=== PATIENT | female | born 1975 | race Caucasian/White ===

== ENCOUNTER 2022-10-17 08:12 | Outpatient (CLI) | payer OTHER, SELFPAY ==
[2022-10-17 12:56] LABS: Albumin* 4.4 g/dL (3.3-5.0); Chloride* 106 mmol/L (96-114); Sodium* 139 mmol/L (135-149)
[2022-10-17 12:57] LABS: Potassium* 4.7 mmol/L (3.6-5.1)
[2022-10-17 12:58] LABS: Cholesterol* 227 mg/dL (90-199)
[2022-10-17 12:59] LABS: Alanine Aminotransferase* 21 U/L (4-35); Alkaline Phosphatase* 94 U/L (40-150); Aspartate Amino Transferase* 29 U/L (12-35); Bilirubin Total* 0.6 mg/dL (0.1-1.5); Blood Urea Nitrogen* 15 mg/dL (5-24); Carbon Dioxide* 27 mmol/L (20-32); Creatinine* 0.7 mg/dL (0.5-1.5); Estimated Glomerular Filt Rate 106 ml/min; Glucose* 89 mg/dL (60-115); Triglycerides* 89 mg/dL (40-149)
[2022-10-17 13:00] LABS: Calcium* 9.4 mg/dL (8.4-10.6); HDL Cholesterol* 61 mg/dL (>=50); LDL Cholesterol Calculated 148 mg/dL (<100)
== END 2022-10-17 08:13 | disposition home or self-care (01) ==
PROVIDERS: PCP Physician Assistant Medical; Visit Provider Physician Assistant Medical
DX: Z01.419 Encounter for gynecological examination (general) (routine) without abnormal findings (principal); E78.5 Hyperlipidemia, unspecified; E66.9 Obesity, unspecified; N95.9 Unspecified menopausal and perimenopausal disorder
CPT/HCPCS: 80053; 80061; 84443

== ENCOUNTER 2022-12-19 09:03 | Outpatient (CLI) | payer OTHER, SELFPAY ==
--- NOTE | 2022-12-19 09:15 | CRLHL7_ITS ---
For Patients: As a result of the Century Cures Act, medical imaging exams and procedure reports are released immediately into your electronic medical record. You may view this report before your referring provider. If you have questions, please contact your health care provider. BILATERAL SCREENING MAMMOGRAM WITH COMPUTER-AIDED DETECTION AND TOMOSYNTHESIS TECHNIQUE: CC and MLO views were obtained. These mammographic images have been obtained using full-field digital technique. These mammographic images were interpreted with the benefit of computer-aided detection. Breast Tomosynthesis was used in this interpretation. COMPARISON FILM: 01/14/19, 11/06/17, 09/05/16. FINDINGS: There are scattered areas of fibroglandular density IMPRESSION: There is no radiographic evidence for malignancy. ASSESSMENT: BI-RADS Category 1: Negative RECOMMENDATION: Routine screening mammogram in 1 year. A lay language report of this examination will be provided to the patient. Sidney Valentine M.D. Diagnostic Radiologist [email or web address] LAINEY/Dictated by: Sidney Valentine MD @ 12/19/2022 12:38:00 PM (Electronically Signed)
== END 2022-12-19 09:04 | disposition home or self-care (01) ==
LOC: MAMMO 09:04
PROVIDERS: PCP Physician Assistant Medical; Visit Provider Physician Assistant Medical
DX: Z12.31 Encounter for screening mammogram for malignant neoplasm of breast (principal)
CPT/HCPCS: 77063; 77067

== ENCOUNTER 2024-01-15 13:39 | Outpatient (CLI) | payer OTHER, SELFPAY ==
--- NOTE | 2024-01-15 14:00 | MM_ITS ---
Patient: RED LOMAX Facility:?[facility] Patient ID:?[id number] Site Patient ID:?[id number] Site :?[id number] Study:?XRay-Breast Bilateral 3D w/CAD-01/15/2024 2:03:32 PM Ordering Physician:Apol[place] Final Report: BILATERAL SCREENING MAMMOGRAM WITH COMPUTER-AIDED DETECTION AND TOMOSYNTHESIS TECHNIQUE: CC and MLO views were obtained. These mammographic images have been obtained using full-field digital technique. These mammographic images were interpreted with the benefit of computer-aided detection. Breast Tomosynthesis was used in this interpretation. COMPARISON FILM: 12/19/2022, 01/14/2019, 11/06/2017. FINDINGS: There are scattered areas of fibroglandular density. IMPRESSION: There is no radiographic evidence for malignancy. ASSESSMENT: BI-RADS Category 1: Negative RECOMMENDATION: Routine screening mammogram in 1 year. A lay language report of this examination will be provided to the patient. Sidney Valentine M.D. Diagnostic Radiologist [email or web address] DSM/sp R& Transcribed: 3:02 p.m. SP/Dictated by: Sidney Valentine MD @ 01/18/2024 9:18:00 AM Signed by:?Sidney Valentine MD @01/18/2024 3:18:21 PM (Electronic Signature)
== END 2024-01-15 13:40 | disposition home or self-care (01) ==
LOC: MAMMO 13:40
PROVIDERS: PCP Physician Assistant Medical; Visit Provider Physician Assistant Medical
DX: Z12.31 Encounter for screening mammogram for malignant neoplasm of breast (principal)
CPT/HCPCS: 77063; 77067

== ENCOUNTER 2024-02-16 09:10 | Outpatient (CLI) | payer OTHER, SELFPAY | END 2024-02-16 09:11 | disposition home or self-care (01) | PROVIDERS: PCP Physician Assistant Medical; Visit Provider Physician Assistant Medical | DX: Z00.00 Encounter for general adult medical examination without abnormal findings (principal); E78.5 Hyperlipidemia, unspecified; E66.9 Obesity, unspecified | CPT/HCPCS: 80053; 80061; 84443 ==

== ENCOUNTER 2025-10-03 13:05 | Outpatient (CLI) | payer OTHER, SELFPAY ==
--- NOTE | 2025-10-03 13:00 | MM_ITS ---
Patient: RED LOMAX Facility:?[facility] Patient ID:?[id number] Site Patient ID:?[id number] Study:?XRay-Breast 3D Jose Guadalupe SCREENING-10/03/2025 1:42:59 PM Ordering Physician:Apolonia Quiros Final Report: INDICATION: BILATERAL SCREENING MAMMOGRAM, ASYMPTOMATIC 50 Y/O FEMALE COMPARISON: 01/15/2024, 12/19/2022, 01/14/2019 TECHNIQUE: Digital mammogram in CC and MLO projections including computer-aided detection (CAD) and tomosynthesis. BREAST COMPOSITION: There are scattered areas of fibroglandular density. FINDINGS: No suspicious findings. ASSESSMENT: BI-RADS 2 Benign RECOMMENDATION: Annual screening mammogram. A lay language report of this examination will be provided to the patient. Dictated by: Sidney Valentine MD @ 10/04/2025 10:02:01 Signed by:?Sidney Valentine MD @10/04/2025 10:02:01 AM (Electronic Signature)
== END 2025-10-03 13:06 | disposition home or self-care (01) ==
LOC: MAMMO 13:06
PROVIDERS: PCP Family Medicine; Visit Provider Physician Assistant Medical
DX: Z12.31 Encounter for screening mammogram for malignant neoplasm of breast (principal)
CPT/HCPCS: 77063; 77067